=== PATIENT | male | born 1995 | race Hispanic/Latino ===

== ENCOUNTER 2022-02-15 19:37 | Emergency (ER) | payer MEDICAID, OTHER ==
[~2022-02-15] VITALS: Ht 177.8 cm; Wt 103.0 kg
[2022-02-15 20:46] VITALS: BP 102/46
[2022-02-15] MEDS ORDERED: NYST5ORA7 PO ×2 (20:47→20:48)
== END 2022-02-15 21:02 | disposition home or self-care (01) ==
LOC: EDH 19:37
DX: B37.0 Candidal stomatitis (principal); N48.89 Other specified disorders of penis